=== PATIENT | female | born 1990 | race Caucasian/White ===

== ENCOUNTER 2017-08-10 11:07 | Emergency (ER) | payer BC ==
[~2017-08-10] VITALS: Ht 177.8 cm; Wt 100.0 kg
[~2017-08-10 11:07] MED LIST: GABA300C PO; GABA400C PO; IBUP-1986 PO; ONDA4TAB9 SL; PER10325T PO; TRAZ-143 PO; VENL-190 PO
[2017-08-10] MEDS ORDERED: normal saline 1000ml 1,000 ML IV ONE (11:28)
[2017-08-10] MEDS ORDERED: normal saline 1000ML IV soln IVB ONE (11:30)
[2017-08-10] MEDS ORDERED: glucagon, human recombinant 1mg kit IV ONE (11:30)
[2017-08-10] MEDS ORDERED: famotidine/PF 10 mg/ml inj IV ONE (11:30)
[2017-08-10] MEDS ORDERED: pantoprazole 40 MG vial IV ONE (11:30)
[2017-08-10] MEDS ORDERED: LORazepam 2 mg/ml vial IV ONE (11:30)
[2017-08-10] MEDS ORDERED: metoclopramide 5 mg/ml inj IV ONE (11:30)
[2017-08-10 11:46] LABS: BASOPHILS # (AUTO) 0.1 X10'3 (0-0.2); BASOPHILS % (AUTO) 0.5 % (0-1); EOSINOPHILS # (AUTO) 0.4 X10'3 (0-0.9); EOSINOPHILS % (AUTO) 2.7 % (0-6); HEMATOCRIT 37.4 % (35.0-45.0); HEMOGLOBIN 12.6 g/dl (12.0-16.0); LYMPHOCYTES # (AUTO) 2.5 X10'3 (1.1-4.8); LYMPHOCYTES % (AUTO) 18.1 % (21-51); MEAN CORPUSCULAR HEMOGLOBIN 29.3 PG (27.0-31.0); MEAN CORPUSCULAR HGB CONC 33.6 % (33.0-36.5); MEAN CORPUSCULAR VOLUME 87.1 FL (78-98); MEAN PLATELET VOLUME 7.8 FL (7.4-10.4); MONOCYTES # (AUTO) 0.9 X10'3 (0-0.9); MONOCYTES % (AUTO) 6.4 % (2-12); NEUTROPHILS # (AUTO) 9.9 X10'3 (1.8-7.7); NEUTROPHILS % (AUTO) 72.3 % (42-75); PLATELET COUNT 238 X10'3 (140-440); RED CELL DISTRIBUTION WIDTH 14.3 % (11.5-14.5); WHITE BLOOD COUNT 13.7 X10'3 (4.5-11.0)
[2017-08-10] MEDS ORDERED: ondansetron/PF 4mg/2ml inj IV ONE (12:05)
[2017-08-10 12:10] LABS: ALANINE AMINOTRANSFERASE 15 U/L (12-78); ALBUMIN 3.4 G/DL (3.4-5.0); ALBUMIN/GLOBULIN RATIO 0.9 (1.1-1.5); ALKALINE PHOSPHATASE 61 IU/L (46-116); ANION GAP 5 (8-16); ASPARTATE AMINO TRANSFERASE 13 U/L (10-37); BILIRUBIN,TOTAL 0.2 MG/DL (0.1-1.0); BLOOD UREA NITROGEN 12 MG/DL (7-18); CALCIUM 8.7 MG/DL (8.5-10.1); CHLORIDE 105 MMOL/L (99-107); GLUCOSE 99 MG/DL (70-104); LIPASE 179 U/L (73-393); POTASSIUM 4.3 MMOL/L (3.5-5.1); SODIUM 140 MMOL/L (135-145); TOTAL CARBON DIOXIDE 29.9 MMOL/L (24-32); TOTAL PROTEIN 7.2 G/DL (6.4-8.2); eGFR 86 ML/MIN
[2017-08-10 12:45] VITALS: BP 112/71
[2017-08-10] MEDS ORDERED: normal saline 1000ml 1,000 ML IV SCH (12:52)
[2017-08-10] MEDS ORDERED: simethicone 40mg/0.6ml oral drops 30ml MC ONE ×2 (12:55→13:05)
[2017-08-10] MEDS ORDERED: LIDOcaine Viscous 15ml cup PO ONE (12:55)
[2017-08-10] MEDS ORDERED: MIDAZolam 5mg/5ml vial IV PRN (12:55)
[2017-08-10] MEDS ORDERED: fentaNYL/PF 50MCG/1 ML 2ML syringe IV PRN (12:55)
[2017-08-10] MEDS ORDERED: fentaNYL/PF 50MCG/1 ML 2ML syringe ONE (13:08)
[2017-08-10] MEDS ORDERED: MIDAZolam 1mg/ml 10ml vial ONE (13:08)
[2017-08-10] MEDS ORDERED: LIDOcaine Viscous 15ml cup ONE (13:08)
[2017-08-10] MEDS ORDERED: diphenhydrAMINE 50 mg/ml inj ONE (13:57)
[2017-08-10 14:13] VITALS: BP 129/68
[2017-08-10 14:23] VITALS: BP 128/73
[2017-08-10 14:33] VITALS: BP 122/73
[2017-08-10 14:43] VITALS: BP 134/62
[2017-08-10] MEDS ORDERED: PANT-47 PO (16:34)
[2017-08-10 16:41] VITALS: BP 118/60
== END 2017-08-10 16:44 | disposition home or self-care (01) ==
LOC: ER 11:08
DX: R13.10 Dysphagia, unspecified (principal); G89.29 Other chronic pain; Z98.890 Other specified postprocedural states; Z79.899 Other long term (current) drug therapy; Z88.2 Allergy status to sulfonamides; Z91.013 Allergy to seafood; Z88.8 Allergy status to other drugs, medicaments and biological substances
CPT/HCPCS: 36415; 43235; 80053; 83690; 84439; 84443; 85025; 96361; 96374; 96375; 99285; C9113; J1200; J1610; J2060; J2250; J2405; J3010; J3490; J7030; A4620; G0500

== ENCOUNTER 2017-08-12 08:55 | Emergency (ER) | payer BC ==
[~2017-08-12] VITALS: Ht 177.8 cm; Wt 96.7 kg
[~2017-08-12 08:55] MED LIST changes: +PANT-47 PO
[2017-08-12] MEDS ORDERED: ondansetron/PF 4mg/2ml inj IV ONE (09:45)
[2017-08-12] MEDS ORDERED: HYDROmorphone 1 mg/ml syringe IV PRN (09:45)
[2017-08-12] MEDS ORDERED: normal saline 1000ML IV soln IVB ONE (09:45)
[2017-08-12 10:04] LABS: BASOPHILS % (AUTO) 0.3 % (0-1); EOSINOPHILS # (AUTO) 0.3 X10'3 (0-0.9); EOSINOPHILS % (AUTO) 1.8 % (0-6); HEMATOCRIT 36.4 % (35.0-45.0); HEMOGLOBIN 12.3 g/dl (12.0-16.0); LYMPHOCYTES # (AUTO) 1.6 X10'3 (1.1-4.8); LYMPHOCYTES % (AUTO) 11.9 % (21-51); MEAN CORPUSCULAR HEMOGLOBIN 29.3 PG (27.0-31.0); MEAN CORPUSCULAR HGB CONC 33.8 % (33.0-36.5); MEAN CORPUSCULAR VOLUME 86.5 FL (78-98); MEAN PLATELET VOLUME 7.8 FL (7.4-10.4); MONOCYTES # (AUTO) 0.7 X10'3 (0-0.9); MONOCYTES % (AUTO) 5.4 % (2-12); NEUTROPHILS # (AUTO) 11.1 X10'3 (1.8-7.7); NEUTROPHILS % (AUTO) 80.6 % (42-75); PLATELET COUNT 239 X10'3 (140-440); RED BLOOD COUNT 4.21 X10'6 (4.20-5.60); RED CELL DISTRIBUTION WIDTH 14.2 % (11.5-14.5); WHITE BLOOD COUNT 13.7 X10'3 (4.5-11.0)
[2017-08-12 10:19] LABS: ALANINE AMINOTRANSFERASE 14 U/L (12-78); ALBUMIN/GLOBULIN RATIO 0.8 (1.1-1.5); ALKALINE PHOSPHATASE 56 IU/L (46-116); ANION GAP 8 (8-16); ASPARTATE AMINO TRANSFERASE 13 U/L (10-37); BILIRUBIN,TOTAL 0.3 MG/DL (0.1-1.0); BLOOD UREA NITROGEN 11 MG/DL (7-18); BUN/CREATININE RATIO 13.8 (6.6-38.0); CALCIUM 8.9 MG/DL (8.5-10.1); CHLORIDE 108 MMOL/L (99-107); GLUCOSE 89 MG/DL (70-104); LIPASE 79 U/L (73-393); POTASSIUM 3.9 MMOL/L (3.5-5.1); SODIUM 145 MMOL/L (135-145); eGFR 86 ML/MIN
[2017-08-12 11:24] LABS: CLARITY,URINE Clear (Clear); COLOR,URINE Yellow (Yellow); GLUCOSE, URINE Negative (Neg); KETONES,URINE 15 mg/dl (Neg); LEUKOCYTE ESTERASE ,URINE Negative (Neg); NITRITES, URINE Negative (Neg); OCCULT BLOOD,URINE Negative (Neg); PH,URINE 7.5 (4.8-8.0); PROTEIN,URINE Negative (Neg); URINE HCG NEGATIVE (NEG)
[2017-08-12 11:36] LABS: UA COLLECTION TYPE CLN CATCH MIDSTREAM
[2017-08-12] MEDS ORDERED: ketorolac trometh. 30mg/ml inj. IV ONE (12:15)
[2017-08-12] MEDS ORDERED: diatrozoate meglu/diatrozoate sod (37% iodine) 120ML oral solution ONE (12:28)
[2017-08-12] MEDS ORDERED: morphine 4 MG/ML inj SYRINge IV ONE ×2 (13:30→14:20)
[2017-08-12] MEDS ORDERED: piperacillin/tazo 3.375gm/50ml 50 ML IV ONE (13:35)
[2017-08-12] MEDS ORDERED: iohexol 300mg/ml 100ml inj. ONE (13:48)
[2017-08-12] MEDS ORDERED: LIDOcaine Viscous 15ml cup MM ONE (14:55)
[2017-08-12] MEDS ORDERED: normal saline 1000ml 1,000 ML IV ONE (14:55)
[2017-08-12 15:00] VITALS: BP 113/56
[2017-08-12] MEDS ORDERED: diphenhydrAMINE 50 mg/ml inj IV ONE (15:05)
[2017-08-12] MEDS ORDERED: HYDR-3965 PO (16:42)
== END 2017-08-12 16:51 | disposition home or self-care (01) ==
LOC: ER 08:56
DX: R59.1 Generalized enlarged lymph nodes (principal); R47.02 Dysphasia; R07.9 Chest pain, unspecified; G89.29 Other chronic pain; Z88.2 Allergy status to sulfonamides; Z88.0 Allergy status to penicillin; Z88.8 Allergy status to other drugs, medicaments and biological substances; Z91.013 Allergy to seafood; Z79.899 Other long term (current) drug therapy
CPT/HCPCS: 36415; 70491; 71045; 74220; 80053; 81003; 81025; 83690; 85025; 96361; 96365; 96366; 96375; 96376; 99285; J1170; J1200; J1885; J2270; J2405; J2543; J7030; Q9963; Q9967

== ENCOUNTER 2017-10-30 09:24 | Emergency (ER) | payer BC ==
[~2017-10-30] VITALS: Ht 177.8 cm; Wt 104.5 kg
[2017-10-30] MEDS ORDERED: diphenhydrAMINE 50 mg/ml inj IV ONE (09:45)
[2017-10-30 09:53] LABS: BASOPHILS % (AUTO) 0.5 % (0-1); EOSINOPHILS # (AUTO) 1.1 X10'3 (0-0.9); EOSINOPHILS % (AUTO) 11.3 % (0-6); HEMATOCRIT 35.7 % (35.0-45.0); HEMOGLOBIN 11.8 g/dl (12.0-16.0); LYMPHOCYTES # (AUTO) 2.9 X10'3 (1.1-4.8); LYMPHOCYTES % (AUTO) 28.7 % (21-51); MEAN CORPUSCULAR HEMOGLOBIN 28.8 PG (27.0-31.0); MEAN CORPUSCULAR VOLUME 87.2 FL (78-98); MEAN PLATELET VOLUME 7.4 FL (7.4-10.4); MONOCYTES # (AUTO) 0.7 X10'3 (0-0.9); MONOCYTES % (AUTO) 7.4 % (2-12); NEUTROPHILS # (AUTO) 5.3 X10'3 (1.8-7.7); NEUTROPHILS % (AUTO) 52.1 % (42-75); PLATELET COUNT 282 X10'3 (140-440); RED BLOOD COUNT 4.09 X10'6 (4.20-5.60); RED CELL DISTRIBUTION WIDTH 13.9 % (11.5-14.5); WHITE BLOOD COUNT 10.1 X10'3 (4.5-11.0)
[2017-10-30] MEDS ORDERED: normal saline 1000ml 1,000 ML IV SCH (09:55)
[2017-10-30] MEDS: diatr meglu/diatrizoate 30ml oral sol.-(3 dose) bottle PO SCH ×3 (10:05→11:54)
[2017-10-30 10:11] LABS: CLARITY,URINE CLEAR (Clear); COLOR,URINE YELLOW (Yellow); GLUCOSE, URINE NEGATIVE (Neg); KETONES,URINE TRACE mg/dl (Neg); LEUKOCYTE ESTERASE ,URINE NEGATIVE (Neg); NITRITES, URINE NEGATIVE (Neg); OCCULT BLOOD,URINE NEGATIVE (Neg); PH,URINE 5.5 (4.8-8.0); PROTEIN,URINE TRACE mg/dl (Neg); UROBILINOGEN,URINE 0.2 E.U/dL (0.2-1.0)
[2017-10-30 10:18] LABS: UA COLLECTION TYPE CLN CATCH MIDSTREAM
[2017-10-30 10:20] LABS: MUCUS STRANDS MANY /LPF (Neg); SQUAMOUS EPITHELIAL CELL,UR FEW /LPF (FEW)
[2017-10-30 10:21] LABS: BACTERIA,URINE NONE SEEN /HPF (Neg); RBC,URINE NONE SEEN /HPF (0-2); WBC,URINE NONE SEEN /HPF (0-4)
[2017-10-30 10:22] LABS: ALANINE AMINOTRANSFERASE 34 U/L (12-78); ALBUMIN/GLOBULIN RATIO 0.8 (1.1-1.5); ALKALINE PHOSPHATASE 63 IU/L (46-116); ANION GAP 4 (8-16); ASPARTATE AMINO TRANSFERASE 18 U/L (10-37); BILIRUBIN,TOTAL 0.1 MG/DL (0.1-1.0); BLOOD UREA NITROGEN 7 MG/DL (7-18); BUN/CREATININE RATIO 8.8 (6.6-38.0); CALCIUM 8.7 MG/DL (8.5-10.1); CHLORIDE 105 MMOL/L (99-107); GLUCOSE 96 MG/DL (70-104); LIPASE 190 U/L (73-393); POTASSIUM 4.1 MMOL/L (3.5-5.1); SODIUM 140 MMOL/L (135-145); TOTAL CARBON DIOXIDE 30.9 MMOL/L (24-32); TOTAL PROTEIN 6.7 G/DL (6.4-8.2); eGFR 86 ML/MIN
[2017-10-30] MEDS ORDERED: iohexol 300mg/ml 100ml inj. ONE (11:43)
[2017-10-30] MEDS ORDERED: POLY17PO10 PO (12:27)
[2017-10-30] MEDS ORDERED: BISA10SU60 RC (12:27)
[2017-10-30 12:53] VITALS: BP 121/85
== END 2017-10-30 12:54 | disposition home or self-care (01) ==
LOC: ER 09:24
DX: K59.00 Constipation, unspecified (principal); R33.9 Retention of urine, unspecified; G89.29 Other chronic pain; Z98.890 Other specified postprocedural states; Z90.89 Acquired absence of other organs; Z88.2 Allergy status to sulfonamides; Z88.8 Allergy status to other drugs, medicaments and biological substances; Z88.1 Allergy status to other antibiotic agents; Z88.0 Allergy status to penicillin; Z91.013 Allergy to seafood; Z79.899 Other long term (current) drug therapy
CPT/HCPCS: 36415; 74177; 80053; 81001; 83690; 85025; 96374; 99285; J1200; J7030; Q9963; Q9967

== ENCOUNTER 2020-01-25 13:31 | Emergency (ER) | payer BC ==
[~2020-01-25] VITALS: Ht 177.8 cm; Wt 120.0 kg
[~2020-01-25 13:31] MED LIST changes: +BISA10SU60 RC; -TRAZ-143 PO; +TRAZ-251 PO
[2020-01-25 15:47] VITALS: BP 130/86
== END 2020-01-25 15:48 | disposition home or self-care (01) ==
LOC: ER 13:31
DX: M79.662 Pain in left lower leg (principal); G89.29 Other chronic pain; F41.9 Anxiety disorder, unspecified; Z98.890 Other specified postprocedural states; Z88.2 Allergy status to sulfonamides; Z88.0 Allergy status to penicillin; Z88.1 Allergy status to other antibiotic agents; Z91.013 Allergy to seafood; Z88.8 Allergy status to other drugs, medicaments and biological substances; Z79.899 Other long term (current) drug therapy
CPT/HCPCS: 93971; 99284

== ENCOUNTER 2020-05-29 15:26 | Emergency (ER) | payer BC ==
[~2020-05-29] VITALS: Ht 177.8 cm; Wt 120.9 kg
[2020-05-29] MEDS ORDERED: ketorolac tromethamine 15mg/ml inj. IM ONE (17:05)
[2020-05-29] MEDS ORDERED: cyclobenzaprine 10mg tablet PO ONE (17:05)
[2020-05-29 18:00] LABS: URINE HCG NEGATIVE (NEG)
[2020-05-29] MEDS ORDERED: ORPH100T2 PO (18:43)
[2020-05-29 19:09] VITALS: BP 129/83
== END 2020-05-29 19:08 | disposition home or self-care (01) ==
LOC: ER 15:28
DX: G89.29 Other chronic pain (principal); M54.5 Low back pain; F41.9 Anxiety disorder, unspecified; Z98.890 Other specified postprocedural states; Z90.89 Acquired absence of other organs; Z88.2 Allergy status to sulfonamides; Z88.0 Allergy status to penicillin; Z88.1 Allergy status to other antibiotic agents; Z91.013 Allergy to seafood; Z88.8 Allergy status to other drugs, medicaments and biological substances; Z79.899 Other long term (current) drug therapy
CPT/HCPCS: 72131; 72192; 81025; 96372; 99285; J1885

== ENCOUNTER 2021-08-07 18:58 | Emergency (ER) | payer BC ==
[~2021-08-07] VITALS: Ht 177.8 cm; Wt 95.0 kg
[~2021-08-07 18:58] MED LIST changes: +ORPH100T2 PO
[2021-08-07 19:36] LABS: CLARITY,URINE CLEAR (Clear); COLOR,URINE YELLOW (Yellow); GLUCOSE, URINE NEGATIVE (Neg); KETONES,URINE NEGATIVE (Neg); LEUKOCYTE ESTERASE ,URINE NEGATIVE (Neg); NITRITES, URINE NEGATIVE (Neg); OCCULT BLOOD,URINE TRACE-LYSED (Neg); PH,URINE 5.5 (4.8-8.0); PROTEIN,URINE NEGATIVE (Neg); URINE HCG NEGATIVE (NEG); UROBILINOGEN,URINE 0.2 E.U/dL (0.2-1.0)
[2021-08-07 19:50] LABS: UA COLLECTION TYPE VOIDED
[2021-08-07 19:51] LABS: WBC,URINE 20-30 /HPF (0-4)
[2021-08-07 19:52] LABS: BACTERIA,URINE FEW /HPF (Neg); RBC,URINE 0-2 /HPF (0-2); SQUAMOUS EPITHELIAL CELL,UR FEW /LPF (FEW); WBC CLUMPS,URINE FEW /HPF (NEGATIVE)
[2021-08-07 19:55] LABS: URINE AMPHETAMINE SCREEN POSITIVE (Neg); URINE BARBITUATE SCREEN NEGATIVE (Neg); URINE BENZODIAZEPINES SCREEN NEGATIVE (Neg); URINE CANNABINOID SCREEN POSITIVE (Neg); URINE COCAINE SCREEN NEGATIVE (Neg); URINE METHADONE SCREEN NEGATIVE (Neg); URINE OPIATE SCREEN NEGATIVE (Neg); URINE PHENCYCLIDINE SCREEN NEGATIVE (Neg)
[2021-08-07] MEDS ORDERED: LORazepam 1 MG tablet PO ONE (19:55)
[2021-08-07 20:05] LABS: BASOPHILS # (AUTO) 0.1 X10'3 (0-0.2); BASOPHILS % (AUTO) 0.5 % (0-1); EOSINOPHILS # (AUTO) 0.1 X10'3 (0-0.9); HEMATOCRIT 36.4 % (35.0-45.0); HEMOGLOBIN 12.1 g/dl (12.0-16.0); LYMPHOCYTES # (AUTO) 2.2 X10'3 (1.1-4.8); LYMPHOCYTES % (AUTO) 19.9 % (21-51); MEAN CORPUSCULAR HEMOGLOBIN 29.9 PG (27.0-31.0); MEAN CORPUSCULAR HGB CONC 33.3 g/dL (33.0-36.5); MEAN CORPUSCULAR VOLUME 89.8 FL (78-98); MEAN PLATELET VOLUME 7.5 FL (7.4-10.4); MONOCYTES # (AUTO) 0.7 X10'3 (0-0.9); MONOCYTES % (AUTO) 6.8 % (2-12); NEUTROPHILS # (AUTO) 7.9 X10'3 (1.8-7.7); NEUTROPHILS % (AUTO) 71.8 % (42-75); PLATELET COUNT 306 X10'3 (140-440); RED BLOOD COUNT 4.05 X10'6 (4.20-5.60); RED CELL DISTRIBUTION WIDTH 14.8 % (11.5-14.5)
[2021-08-07 20:15] LABS: ALANINE AMINOTRANSFERASE 16 U/L (12-78); ALBUMIN 3.6 G/DL (3.4-5.0); ALKALINE PHOSPHATASE 51 IU/L (46-116); ANION GAP 6 (8-16); ASPARTATE AMINO TRANSFERASE 13 U/L (10-37); BILIRUBIN,TOTAL 0.4 MG/DL (0.1-1.0); BLOOD UREA NITROGEN 12 MG/DL (7-18); BUN/CREATININE RATIO 12.4 (6.6-38.0); CALCIUM 8.4 MG/DL (8.5-10.1); CHLORIDE 103 MMOL/L (99-107); CREATININE 0.97 MG/DL (0.40-0.90); ETHANOL < 0.010 GM/DL (0.0-0.010); GLUCOSE 112 MG/DL (70-104); POTASSIUM 3.8 MMOL/L (3.5-5.1); SODIUM 138 MMOL/L (135-145); TOTAL CARBON DIOXIDE 29.3 MMOL/L (24-32); TOTAL PROTEIN 7.1 G/DL (6.4-8.2); eGFR 67 ML/MIN
[2021-08-07] MEDS ORDERED: OXCA150T5 PO (20:15)
[2021-08-07] MEDS ORDERED: LITH150C8 PO (20:15)
[2021-08-07] MEDS ORDERED: ESCI10TA PO (20:18)
[2021-08-07] MEDS ORDERED: LURA120T PO (20:18)
[2021-08-07] MEDS ORDERED: LISD60CA PO (20:18)
[2021-08-07] MEDS ORDERED: LURA40TA3 PO (20:18)
--- NOTE | 2021-08-07 20:38 | NUR ---
THIS FINAL DRESSING CUTTER INTERVIEWED PATIENT IN MAIN ED. HER IS AT BEDSIDE. PATIENT IS ALERT AND ORIENTED X4. HER AFFECT IS FLAT. PATIENT ADMITS TO S/I WITH A PLAN TO OVERDOSE WITH PILLS. THE PATIENT STATES RECENT ACUTE DEPRESSION AND SOME MANIC BEHAVIOR TOO. PATIENT ADMITS TO HEARING HER OWN VOICE IN HER HEAD TELLING HER TO KILL HERSELF, ALSO TELLING HER THAT SHE IS NO GOOD. THE PATIENT ALSO DESCRIBES SOME POSSIBLE VISUAL HALLUCINATIONS, "SEEING SOME TYPE OF SHADOW TYPE FIGURE?" THE PATIENT ADMITS TO CONSUMING BAILEYS IN HER COFFEE IN THE AM EACH DAY, LIGHT ALCOHOL IN THE AFTERNOON, THEN VODKA AT NIGHT. SHE HAS BEEN OFF ALCOHOL FOR ABOUT FOUR DAYS NOW, SAVE FOR SOME LIGHT [place]? THIS FINAL DRESSING CUTTER WILL ADDRESS THIS WITH DR. VILLASEÑOR.
--- NOTE | 2021-08-07 22:00 | NUR ---
PATIENT IS SLEEPING QUIETLY, NO DISTRESS. IN VIEW FROM NURSES STATION.
--- NOTE | 2021-08-07 23:04 | NUR ---
PATIENT IN VIEW FROM NURSES STATION. SHE SLEEPS ON HER LEFT SIDE. NO DISTRESS.
--- NOTE | 2021-08-08 00:03 | NUR ---
PATIENT SLEEPING ON HER RIGHT SIDE. SHE HAS SELF REPOSITIONED.
--- NOTE | 2021-08-08 02:13 | NUR ---
PATIENT SLEEPS QUIETLY ON HER SIDE. NO DISTRESS NOTED.
--- NOTE | 2021-08-08 03:30 | NUR ---
PATIENT SLEEPING ON RIGHT SIDE. PINK, W/D. IN VIEW FROM NURSES STATION.
--- NOTE | 2021-08-08 04:23 | NUR ---
PATIENT SLEEPS QUIETLY.
--- NOTE | 2021-08-08 05:46 | NUR ---
PATIENT IS NOW SLEEPING QUIETLY ON HER LEFT SIDE.
--- NOTE | 2021-08-08 05:47 | NUR ---
PATIENT AWAKENS FOR VITAL SIGNS BEING TAKEN. NO DISTRESS.
[2021-08-08] MEDS: LORazepam 1 MG tablet PO PRN ×2 (06:07→10:10)
--- NOTE | 2021-08-08 06:08 | NUR ---
PATIENT AWOKE, VISIBLE ANXIETY, PATIENT IS CRYING AND WANTS TO LEAVE. PATIENT ADVISED THAT MD HAS PLACED HER ON A 1799 HOLD. PATIENT GIVEN ATIVAN 2 MG PO SHE IS AN ALCOHOLIC AND HAD BEEN OFF ALCOHOL FOR NEARLY FOUR DAYS. PATIENT IS WELL ORIENTED, SHE EXHIBITS UNDERSTANDING OF INFORMATION PROVIDED TO HER.
[2021-08-08] MEDS ORDERED: lisdexamfetamine dimesylate 40mg capsule PO SCH (08:00)
[2021-08-08] MEDS ORDERED: ondansetron 4mg rapidly disintigrating tab PO PRN (08:00)
[2021-08-08] MEDS ORDERED: lithium carbonate 150mg capsule PO SCH (08:00)
[2021-08-08] MEDS ORDERED: lisdexamfetamine dimesylate 10mg capsule PO SCH (08:00)
[2021-08-08] MEDS ORDERED: ESCITALOPRAM OXALATE 5 MG TABLET PO SCH (08:00)
[2021-08-08] MEDS ORDERED: lurasidone 20mg tablet PO SCH (08:00)
[2021-08-08] MEDS ORDERED: oxcarbazepine 150mg tablet PO SCH (08:00)
--- NOTE | 2021-08-08 09:19 | NUR ---
Refaxed packet to [facility].
--- NOTE | 2021-08-08 10:12 | NUR ---
Pt became agitated after [facility] clinician was at bedside pt feels she doesn't need treatment. Clinician attempting to formulate a safety plan with family. Pt also reported some tremors, mild diaphoresis noted r/t ETOH withdrawal. Pt denies A/V and tactile hallucinations, N/V. Administered PRN Ativan 2 mg.
--- NOTE | 2021-08-08 12:14 | NUR ---
DISCHARGE NOTE: Patient was discharged from unit at 1210. Pt left with and all her personal belongings. Pt was given resources for residential treatment programs. Pt's family is also looking into finding her an inpatient program. Pt will follow up with Dr. Guillory's. Pt's verbalized understanding. Pt feels "I just need to do this on my own." Pt was slightly agitated with "for bringing me here." Pt was A&x4.
[2021-08-08 12:15] VITALS: BP 100/62
[2021-08-08] MEDS ORDERED: lurasidone 60mg tablet PO SCH (21:00)
== END 2021-08-08 13:25 ==
LOC: ER 18:59
DX: R45.851 Suicidal ideations (principal); Z20.822 Contact with and (suspected) exposure to COVID-19; F31.9 Bipolar disorder, unspecified; G89.29 Other chronic pain; F41.9 Anxiety disorder, unspecified; Z98.890 Other specified postprocedural states; Z90.89 Acquired absence of other organs; Z88.2 Allergy status to sulfonamides; Z88.1 Allergy status to other antibiotic agents; Z88.0 Allergy status to penicillin; Z88.8 Allergy status to other drugs, medicaments and biological substances; Z79.899 Other long term (current) drug therapy
CPT/HCPCS: 36415; 80053; 80305; 80320; 81001; 81025; 85025; 87635; 99285; C9803

== ENCOUNTER 2022-05-24 18:55 | Emergency (ER) | payer BC ==
[~2022-05-24] VITALS: Ht 170.2 cm; Wt 66.4 kg
[~2022-05-24 18:55] MED LIST changes: -BISA10SU60 RC; +ESCI10TA PO; -GABA300C PO; -GABA400C PO; -IBUP-1986 PO; +LISD60CA PO; +LITH150C8 PO; +LURA120T PO; +LURA40TA2 PO; -ORPH100T2 PO; +OXCA150T5 PO; -PANT-47 PO; -PER10325T PO; -TRAZ-251 PO; -VENL-190 PO
[2022-05-24 20:02] LABS: BASOPHILS # (AUTO) 0.1 X10'3 (0-0.2); BASOPHILS % (AUTO) 0.6 % (0-1); EOSINOPHILS # (AUTO) 0.1 X10'3 (0-0.9); EOSINOPHILS % (AUTO) 0.8 % (0-6); HEMATOCRIT 39.6 % (35.0-45.0); HEMOGLOBIN 12.9 g/dl (12.0-16.0); LYMPHOCYTES # (AUTO) 2.6 X10'3 (1.1-4.8); LYMPHOCYTES % (AUTO) 29.3 % (21-51); MEAN CORPUSCULAR HGB CONC 32.6 g/dL (33.0-36.5); MEAN PLATELET VOLUME 7.6 FL (7.4-10.4); MONOCYTES # (AUTO) 0.4 X10'3 (0-0.9); MONOCYTES % (AUTO) 4.6 % (2-12); NEUTROPHILS # (AUTO) 5.8 X10'3 (1.8-7.7); NEUTROPHILS % (AUTO) 64.7 % (42-75); PLATELET COUNT 335 X10'3 (140-440); RED BLOOD COUNT 4.61 X10'6 (4.20-5.60); RED CELL DISTRIBUTION WIDTH 13.4 % (11.5-14.5)
--- NOTE | 2022-05-24 20:05 | NUR ---
PT BROUGHT TO ROOM 19 . THIS RECORDER TOOK ANOTHER SET OF VS BP AT 147 /94 HR 68 O2 SATS AT 100 % RA EDUCATED FAMILY AT BEDSIDE ONLY ONE VISITOR IS ALLOWED IN THE ED AND SOON ONE OF THE TWO WILL NEED TO WAIT IN THE LOBBY . PT AWAKE ORIENTED , POOR AFFECT
[2022-05-24 20:06] LABS: ALANINE AMINOTRANSFERASE 29 U/L (12-78); ALBUMIN 3.8 G/DL (3.4-5.0); ALBUMIN/GLOBULIN RATIO 1.1 (1.1-1.5); ALKALINE PHOSPHATASE 48 IU/L (46-116); ANION GAP 11 (8-16); ASPARTATE AMINO TRANSFERASE 21 U/L (10-37); BILIRUBIN,TOTAL 0.6 MG/DL (0.1-1.0); BLOOD UREA NITROGEN 12 MG/DL (7-18); BUN/CREATININE RATIO 12.4 (6.6-38.0); CHLORIDE 101 MMOL/L (99-107); CREATININE 0.97 MG/DL (0.40-0.90); GLUCOSE 85 MG/DL (70-104); POTASSIUM 3.3 MMOL/L (3.5-5.1); SODIUM 139 MMOL/L (135-145); TOTAL CARBON DIOXIDE 26.9 MMOL/L (24-32); TOTAL PROTEIN 7.4 G/DL (6.4-8.2); eGFR 67 ML/MIN
--- NOTE | 2022-05-24 20:08 | NUR ---
PATIENT WAITING IN ROOM 19 TO BE SEEN
--- NOTE | 2022-05-24 20:18 | NUR ---
PT BLOOD SUGAR TAKEN AT 72 MOVEED PT TO ROOM 18 TO BE SEEN URINE SPECIMAN CUP GIVEN
[2022-05-24 20:54] LABS: CLARITY,URINE SLIGHTLY CLOUDY (Clear); COLOR,URINE YELLOW (Yellow); GLUCOSE, URINE NEGATIVE (Neg); KETONES,URINE NEGATIVE (Neg); LEUKOCYTE ESTERASE ,URINE NEGATIVE (Neg); NITRITES, URINE NEGATIVE (Neg); OCCULT BLOOD,URINE SMALL (Neg); PROTEIN,URINE NEGATIVE (Neg); UROBILINOGEN,URINE 0.2 E.U/dL (0.2-1.0)
[2022-05-24 20:57] LABS: UA COLLECTION TYPE CLN CATCH MIDSTREAM; URINE HCG NEGATIVE (NEG)
[2022-05-24 21:02] VITALS: BP 115/80
[2022-05-24 21:02] LABS: SQUAMOUS EPITHELIAL CELL,UR MANY /LPF (FEW)
[2022-05-24 21:03] LABS: HYALINE CASTS 0-3 /LPF (NEGATIVE); MUCUS STRANDS MANY /LPF (Neg)
[2022-05-24 21:04] LABS: BACTERIA,URINE 1+ /HPF (Neg); TRANSITIONAL EPI CELLS,URINE FEW /HPF; WBC,URINE 0-4 /HPF (0-4)
== END 2022-05-24 21:40 | disposition left against medical advice (07) ==
LOC: ER 18:55
DX: R42 Dizziness and giddiness (principal); Z53.21 Procedure and treatment not carried out due to patient leaving prior to being seen by health care provider
CPT/HCPCS: 36415; 71045; 80053; 81001; 81025; 82948; 83880; 84484; 85025; 93005